=== PATIENT | female | born 1990 | race Two or more races ===

== ENCOUNTER → 2016-11-19 | Outpatient (CLI) | payer OTHER ==
[~2016-11-19] MED LIST: PRENCAP61 OR
[2016-11-19 08:11] LABS: Basophils # (auto) 0 uL; Basophils % (auto) 0.2 % (0.0-2.0); CONDITION Y; Eosinophils # (auto) 0.1 uL; Eosinophils % (auto) 1.4 % (0.0-7.0); Hematocrit 43.2 % (36.0-46.0); Hemoglobin 14.7 g/dL (12.2-16.2); Lymphocytes # (auto) 2.6 uL; Lymphocytes % (auto) 29.4 % (10.0-50.0); Mean Corpuscular Hemoglobin 27.8 pg (28.0-32.0); Mean Corpuscular Hgb Conc. 34.1 g/dL (32.0-36.0); Mean Corpuscular Volume 81.6 fL (80.0-100.0); Mean Platelet Volume 8.6 fL (7.4-10.4); Monocytes # (auto) 0.4 uL; Monocytes % (auto) 5.1 % (0.0-12.0); Neutrophils # (auto) 5.6 uL; Neutrophils % (auto) 63.9 % (37.0-80.0); Platelet Count (auto) 273 10^3/uL (140-450); Red Cell Distribution Width 14.8 % (11.6-16.0); White Blood Cell 8.8 10^3/uL (4.4-10.8)
[2016-11-19 08:46] LABS: Urine Bilirubin Negative (Negative); Urine Blood Negative /uL (Negative); Urine Color Yellow (Yellow); Urine Glucose Normal (Normal); Urine Ketone Negative (Negative); Urine Nitrite Negative (Negative); Urine RBC <1 /hpf (0 - 4); Urine Squamous Epithelial Cell FEW /hpf (<5); Urine Urobilinogen Normal (Negative)
[2016-11-19 09:25] LABS: Albumin 3.6 g/dL (3.4-5.0); BUN/Creatinine Ratio 13.8; Bilirubin, Total 0.3 mg/dL (0.2-1.0); Calcium 8.7 mg/dL (8.5-10.1); Potassium 3.8 mmol/L (3.5-5.1)
== END | disposition home or self-care (01) ==
LOC: LAB 07:41
PROVIDERS: ATTEND Internal Medicine
DX: E66.9 Obesity, unspecified (principal); Z68.30 Body mass index [BMI] 30.0-30.9, adult
CPT/HCPCS: 36415; 80053; 80061; 81001; 83036; 84439; 84443; 85025; 85379; 85652

== ENCOUNTER 2025-01-13 01:30 | Emergency (ER) | payer OTHER ==
[~2025-01-13] VITALS: Ht 177.8 cm; Wt 127.0 kg
[~2025-01-13 01:30] MED LIST changes: +CEPH500C PO; +CETITAB29 PO; +CLIN1CAP70 PO; +PRED20TA2 PO
[2025-01-13] MEDS ORDERED: DIPH25CA66 PO (02:07)
--- NOTE | 2025-01-13 02:07 | ED.PDOC ---
History of Present Illness HPI Comments This patient is a 34-year-old female who arrives the ED today for evaluation of an insect bite to her left thigh that occurred yesterday and has continued today. Patient complains of localized swelling and warmth. Patient denies any fever nausea or vomiting. Patient denies any allergies to insect bites. Vital signs were stable at arrival. Chief Complaint: Insect Bite Time Seen by MD: 01:38 Reviewed Notes: Nurses Notes Allergies: Uncoded Allergies: walnuts (Allergy, Intermediate, 01/08/14) Hives, itchy throat Home Meds Active Scripts Cetirizine HCl (Eql All Day Allergy) 10 Mg Tab, 10 MG PO DAILY PRN, #30 TAB 0 Refills Prov:MANOJ FRANCISCO 09/27/23 Prednisone (Prednisone) 20 Mg Tab, 20 MG PO BID for 5 Days, #10 TAB 0 Refills Prov:MANOJ FRANCISCO 09/27/23 Cephalexin Monohydrate (Cephalexin) 500 Mg Cap, 1 CAP PO BID for 7 Days, #14 CAP 0 Refills Prov:MANOJ FRANCISCO 09/27/23 Clindamycin Hcl (Clindamycin Hcl) 300 Mg Cap, 1 CAP PO TID for 7 Days, #21 CAP 0 Refills Prov:MANOJ FRANCISCO 09/27/23 Reported Medications Vit W/ Fe Carbonyl-Fe (Pnv-Total) Cap, 1 OR DAILY, CAP 01/08/14 Information Source: Patient Mode of Arrival: Ambulatory Severity: Mild Timing: Days Duration: Since onset Prehospital treatment: None Past Medical History PAST MEDICAL HISTORY: Denies Surgical History: Denies all surgeries SOFTBALL CORE MOLDER History: No Pertinent SOFTBALL CORE MOLDER History Family History Family History: Reviewed,noncontributory to illness, No family hx of Cancer, No family hx of DM, No family hx of Heart alfredo, No family hx of HTN, No family hx ofKidney alfredo, No family hx of Liver alfredo, No family hx of Lung alfredo, No family hx of Stroke Social History Smoker: Non-Smoker Alcohol: Denies ETOH Use Drugs: Denies Drug Use Lives In: Home Constitutional: denies: chills, diaphoresis, fatigue, fever, malaise, sweats, weakness, others EENTM: denies: blurred vision, double vision, ear bleeding, ear discharge, ear drainage, ear pain, ear ringing, eye pain, eye redness, hearing loss, mouth pain, mouth swelling, nasal discharge, nose bleeding, nose congestion, nose pain, photophobia, tearing, throat pain, throat swelling, voice changes, others Respiratory: denies: cough, hemoptysis, orthopnea, SOB at rest, shortness of breath, SOB with excertion, stridor, wheezing, others Cardiovascular: denies: chest pain, dizzy spells, diaphoresis, Dyspnea on exertion, edema, irregular heart beat, left arm pain, lightheadedness, palpitations, PND, syncope, others Gastrointestinal: denies: abdomen distended, abdominal pain, blood streaked bowels, constipated, diarrhea, dysphagia, difficulty swallowing, hematemesis, melena, nausea, poor appetite, poor fluid intake, rectal bleeding, rectal pain, vomiting, others Genitourinary: denies: abnormal vagina bleeding, burning, dyspareunia, dysuria, flank pain, frequency, hematuria, incontinence, pain, , vagina discharge, urgency, others Neurological: denies: dizziness, fainting, headache, left sided numbness, left sided weakness, numbness, paresthesia, pre-existing deficit, right sided numbness, right sided weakness, seizure, speech problems, tingling, tremors, weakness, others Musculoskeletal: denies: back pain, gout, joint pain, joint swelling, muscle pain, muscle stiffness, neck pain, others Integumetry: reports: others (Insect bite to left thigh); denies: bruises, change in color, change in hair/nails, dryness, laceration, lesions, lumps, rash, wounds Allergic/Immunocompromised: denies: Difficulty Healing, Frequent Infections, Hives, Itching, others Hematologic/Lymphatic: denies: anemia, blood clots, easy bleeding, easy bruising, swollen glands, others Endocrine: denies: excessive hunger, excessive sweating, excessive thirst, excessive urination, flushing, intolerance to cold, intolerance to heat, unexplained weight gain, unexplained weight loss, others Psychiatric: denies: anxiety, bipolar disorder, depression, hopeless, panic disorder, schizophrenia, sleepless, suicidal, others Physical Exam General Appearance: Mild Distress (Due to anxiety related to the insect bite concern.), Obese HEENT: Normal ENT Inspection, Pharynx Normal, TMs Normal Neck: Full Range of Motion, Non-Tender, Normal, Normal Inspection Respiratory: Chest Non-Tender, Lungs Clear, No Accessory Muscle Use, No Respiratory Distress, Normal Breath Sounds Cardiovascular: No Edema, No JVD, No Murmur, No Gallop, Normal Peripheral Pulses, Regular Rate/Rhythm Breast Exam: Deferred Gastrointestinal: No Organomegaly, Non Tender, No Pulsatile Mass, Normal Bowel Sounds, Soft Genitalia: Deferred Pelvic: Deferred Rectal: Deferred Extremities: No calf tenderness, Non-tender Neurologic: Alert Cerebellar Function: NOT DONE Reflexes: NOT DONE Skin: Other (Patient displays a palm sized local reaction to an unknown insect bite. Localized erythema with a very mild edema. No signs of infection.) Lymphatic: No Adenopathy Was a procedure done? Was a procedure done?: No Differential Dx Considerations may include: Allergic reaction to insect bite X-Ray, Labs, Meds, VS Vital Signs Date Time Temp Pulse Resp B/P (MAP) Pulse Ox O2 Delivery O2 Flow Rate FiO2 01/13/25 01:51 99.4 104 18 140/94 99 99.4 X-Ray, Labs, Meds, VS Comment Spent time discussing the concerns with the patient. Advised with the patient appears to have a little localized reaction to an unknown insect bite. Patient was given a shot of dexamethasone prior to discharge. Patient has been advised to utilize Benadryl at home as needed. Time of 1ST Reevaluation: 02:05 Reevaluation 1ST: Improved Consultation: PCP Patient Education/Counseling: Diagnosis, Treatment Family Education/Counseling: Diagnosis, Treatment SEPSIS Sepsis Screen Date sepsis recognized/suspect: Jan 13, 2025 Time Sepsis recognized/suspect: 0156 Recent Procedure: No On Antibiotic Therapy: No Respiratory Rate >20: No Heart Rate >90: Yes Temp<36 C (96.8 F) or >38.3 C: No SBP <90 or MAP <65 mmHG: No New Acute Mental Status Change: No Is the patient on CPAP, BIPAP,: No Vital Signs Date Time Temp Pulse Resp B/P (MAP) Pulse Ox O2 Delivery O2 Flow Rate FiO2 01/13/25 01:51 99.4 104 18 140/94 99 99.4 Departure 1 Departure Time of Disposition: 02:05 Impression: Primary Impression: Allergic reaction to insect bite Disposition: HOME / SELF CARE / HOMELESS Condition: Stable Additional Instructions: Advised patient utilize medication as needed for symptomatic relief. e-Prescriptions Diphenhydramine Hcl (Benadryl Allergy) 25 Mg Cap 1 CAP PO Q8HP PRN, #20 CAP 0 Refills Prov: ALLEY FLORENCE PAC 01/13/25 Discharged With: Self Critical Care Note Critical Care Time?: No Stability Stability form required: No Heart Score Heart Score: Heart Score Response (Comments) Value History N/A 0 EKG N/A 0 Age N/A 0 Risk Factors N/A 0 Troponin N/A 0 Total 0 ALLEY FLORENCE PAC Jan 13, 2025 02:07
[2025-01-13 02:22] VITALS: BP 132/84; PULSE 86; RESP 18; TEMP 99.2; O2SAT 98
== END 2025-01-13 02:31 | disposition home or self-care (01) ==
LOC: EEVIPCON 01:30 → ER 01:30
DX: S70.362A Insect bite (nonvenomous), left thigh, initial encounter (principal); W57.XXXA Bitten or stung by nonvenomous insect and other nonvenomous arthropods, initial encounter; Y93.89 Activity, other specified; Y92.89 Other specified places as the place of occurrence of the external cause; Y99.8 Other external cause status
CPT/HCPCS: 96372; 99283; J1100